=== PATIENT | female | born 1965 | race Caucasian/White ===

== ENCOUNTER 2019-09-22 08:16 | Inpatient (IN) | payer BC ==
[~2019-09-22] VITALS: Ht 177.8 cm; Wt 126.1 kg
[~2019-09-22 08:16] MED LIST: ACTOS30 MG PO; INVOKAMET1 PO; LIPITOR20 MG PO; OMEGA-31 SGL PO; PRINZIDE 12.5 M1 TAB PO; PRISTIQ 50 MG T50 MG PO; ZYRTEC 10MG10 MG PO; [UNRECOGNIZED DRUG - OTHER] PO
[2019-09-22] MEDS ORDERED: GLUCOPHAGE500 MG/TAB PO (08:33)
[2019-09-22] MEDS ORDERED: OZEMPIC0.25 MG/0. SQ (08:34)
[2019-09-22 09:03] LABS: COLLECTION METHOD CLEAN CATCH
[2019-09-22 09:10] LABS: BASO # 0.1 (0.0-0.2); BASO % 0.8 % (0.0-2.0); EOS # 0.1 (0.0-0.7); EOS % 0.8 % (0-4.0); GRAN % 67.7 % (42.2-75.2); HEMATOCRIT 38.5 % (37.0-47.0); HEMOGLOBIN 12.9 g/dl (12.5-16.0); LYMPH # 1.5 (1.2-3.4); LYMPH % 19.9 % (20.0-51.0); MEAN CELL VOLUME 87 fl (80.0-100.0); MEAN CORPUSCULAR HEMOGLOBIN 29 pg (27.0-31.0); MEAN CORPUSCULAR HGB CONC 34 g/dl (33.0-37.0); MEAN PLATELET VOLUME 10.9 fl (7.4-10.4); MONO # 0.8 (0.1-0.6); MONO % 10.4 % (1.7-9.3); PLATELET COUNT 229 K/mm3 (130-400); RED BLOOD COUNT 4.42 M/mm3 (4.10-5.30); REDCELL DISTRIBUTION WIDTH-CV 17.1 % (11.5-14.5)
[2019-09-22 09:18] LABS: MUCOUS Present /lpf; PH 6 (5-8); URINE APPEARANCE Clear; URINE BACTERIA Rare /hpf; URINE BILIRUBIN Negative (NEGATIVE); URINE BLOOD 1+ (NEGATIVE); URINE COLOR Amber; URINE GLUCOSE 1+ (NEGATIVE); URINE KETONE 1+ (NEGATIVE); URINE LEUKOCYTE ESTERASE Trace (NEGATIVE); URINE NITRATE Negative (NEGATIVE); URINE PROTEIN(semi-quant) 1+ (NEGATIVE); URINE RBC 20-50 /hpf; URINE UROBILINOGEN >=4.0 mg/dL (NEGATIVE)
[2019-09-22 09:29] LABS: ALANINE AMINOTRANSFERASE 50 U/L (9-52); ALBUMIN 3.1 gm/dL (3.5-5.0); ALKALINE PHOSPHATASE 543 U/L (50-136); ANION GAP 8 mmol/L (7-16); AST,SGOT 83 U/L (15-37); BILIRUBIN,TOTAL 2.4 mg/dL (0.0-1.0); BLOOD UREA NITROGEN 8 mg/dL (7-17); CALCIUM 8.1 mg/dL (8.4-10.2); CARBON DIOXIDE 26 mmol/L (22-30); CHLORIDE 102 mmol/L (98-107); GLUCOSE 227 mg/dL (74-106); LIPASE 88 U/L (23-300); POTASSIUM 3.6 mmol/L (3.4-5.0); SODIUM 136 mmol/L (137-145); TOTAL PROTEIN 6.5 gm/dL (6.4-8.2)
[2019-09-22 09:30] LABS: C-REACTIVE PROTEIN < 0.5 mg/dL (0.0-0.9)
[2019-09-22 09:43] LABS: TROPONIN-I < 0.012 ng/mL (0.000-0.035)
--- NOTE | 2019-09-22 11:15 | NUR ---
Received patient from ED. Alert. NPO. IV antibiotic infusing. here.
[2019-09-22 11:36] VITALS: BP 129/58; PULSE 88; TEMP 98
--- NOTE | 2019-09-22 12:45 | NUR ---
Medicated with IV Dilaudid for c/o increasing abdominal pain. IV fluids infusing. Denies nausea.
[2019-09-22 15:45] VITALS: BP 125/33; PULSE 91; TEMP 98.2
--- NOTE | 2019-09-22 18:00 | NUR ---
Pain improved with prn [place] and Dilaudid. Taking clear liquids. Independent in room.
--- NOTE | 2019-09-22 19:45 | NUR ---
Pt. sitting up in bed watching TV. Pt. is A&OX3, assessment complete. IV to rt. hand patent, IV fluids infusing per orders. Pt. denies needs at this time. Call light within reach.
[2019-09-22 20:40] VITALS: BP 138/50; PULSE 90; TEMP 98.6
[2019-09-22 23:56] VITALS: BP 117/50; PULSE 90; TEMP 98.5
[2019-09-23 04:07] VITALS: BP 120/48; PULSE 80; TEMP 98
[2019-09-23 06:47] LABS: BASO % 0.5 % (0.0-2.0); EOS # 0.1 (0.0-0.7); EOS % 1.3 % (0-4.0); GRAN # 5.5 (1.4-6.5); GRAN % 64.5 % (42.2-75.2); HEMOGLOBIN 11.3 g/dl (12.5-16.0); LYMPH # 1.9 (1.2-3.4); MEAN CELL VOLUME 87 fl (80.0-100.0); MEAN CORPUSCULAR HEMOGLOBIN 29 pg (27.0-31.0); MEAN CORPUSCULAR HGB CONC 34 g/dl (33.0-37.0); MEAN PLATELET VOLUME 11.4 fl (7.4-10.4); MONO % 11.5 % (1.7-9.3); PLATELET COUNT 208 K/mm3 (130-400); RED BLOOD COUNT 3.86 M/mm3 (4.10-5.30); REDCELL DISTRIBUTION WIDTH-CV 17.4 % (11.5-14.5)
[2019-09-23 06:48] LABS: HEMATOCRIT 33.6 % (37.0-47.0)
[2019-09-23 06:58] LABS: ALBUMIN 2.4 gm/dL (3.5-5.0); BILIRUBIN,TOTAL 2.5 mg/dL (0.0-1.0); CALCIUM 7.6 mg/dL (8.4-10.2); CREATININE, serum 0.35 (0.52-1.25); POTASSIUM 3.7 mmol/L (3.4-5.0); TOTAL PROTEIN 5.3 gm/dL (6.4-8.2)
[2019-09-23 07:36] VITALS: BP 128/53; PULSE 85; TEMP 98
--- NOTE | 2019-09-23 09:41 | NUR ---
Initial visit; Patient and thanked Clinic Assistant for looking in on Faith and making sure she has a support system. Clinic Assistant offered spiritual care.
--- NOTE | 2019-09-23 11:59 | NUR ---
KYLIE met with the patient and the patient's , Ryan ([phone]), to discuss discharge plan. The patient lives in [place] with her and their [id number] son. She reports independence with ADLs and does not have any DME. The patient's PCP is Dr. Serene Cagle and she receives her medications at [facility]. She reports no difficulties obtaining her meds. The patient does not have advanced directives and she was not interested in completing them at this time. The patient plans to return home with her family upon discharge. No additional needs at this time.
[2019-09-23 12:01] VITALS: BP 134/62; PULSE 81; TEMP 98.1
[2019-09-23 16:43] VITALS: BP 134/57; PULSE 82; TEMP 98.6
--- NOTE | 2019-09-23 18:08 | NUR ---
Patient resting in bed. Ercp completed early this afternoon. She tolerated well. Vss. Tolerated clears. No Nausea. She will be Npo at midnight for robotic julianna in AM. IV per orders. She showered this am & did well. Pain managed with po & iv medication per orders. Pain in her abdomen & radiates to her back. SHe has described as burning. Her supportive family has been at bedside.
--- NOTE | 2019-09-23 20:00 | NUR ---
Patient in bed, is alert and oriented x4. Has IVF infusing to right hand without redness or swelling. Denies needs at this time.
[2019-09-23 20:05] VITALS: BP 136/53; PULSE 83; TEMP 98.4
[2019-09-23 23:12] VITALS: BP 140/59; PULSE 84; TEMP 98.4
--- NOTE | 2019-09-23 23:22 | NUR ---
Patient reports abdominal pain 05/25, medicated with Dilaudid 0.5mg IVP at this time.
[2019-09-24] VITALS (10 sets, daily range): BP systolic 121–141; BP diastolic 52–64; PULSE 74–94; TEMP 97.4–9704
--- NOTE | 2019-09-24 00:07 | NUR ---
Patient reports pain 5/10, [place] 5/325mg given at this time.
--- NOTE | 2019-09-24 04:30 | NUR ---
Medicated with Dilaudid 0.5mg IVP at this time for pain to back 6/10.
--- NOTE | 2019-09-24 09:50 | NUR ---
Patient alert and oriented, answers questions appropriately. See assessment. Abdomen soft, non tender, non distended. Bowel sounds active x4 quads. Tender with palpation to RUQ/LUQ. No other c/o at this time.
--- NOTE | 2019-09-24 17:27 | NUR ---
Patient to surgery at 1600.
--- NOTE | 2019-09-24 18:12 | NUR ---
Patient returns from surgery. Assessment unchanged except for lap sites to abdomen x 3 with no redness or drainage noted. No c/o at this time.
--- NOTE | 2019-09-24 20:00 | NUR ---
PATIENT DROWSY POST LAP LORENA. HAS LAP SITES X4 GLUED AND DRY. IV TO RIGHT HAND WITH IVF INFUSING WITHOUT PROBLEM. DENIES PAIN AT THIS TIME.
--- NOTE | 2019-09-24 22:10 | NUR ---
IVF CAPPED. PATIENT TAKING ORAL FLUIDS WELL. HAS BEEN UP TO VOID X1. DENIES NEED FOR PAIN MEDS AT THIS TIME. DOES REPORT SOME VAGINAL BLEEDING WHEN UP TO BR, VPAD IN PLACE.
[2019-09-25 00:22] VITALS: BP 134/60; PULSE 101; TEMP 98.6
--- NOTE | 2019-09-25 02:45 | NUR ---
PATIENT DROWSY, DENIES PAIN AT THIS TIME.
[2019-09-25 03:44] VITALS: BP 123/59; PULSE 100; TEMP 99.2
[2019-09-25 07:39] VITALS: BP 133/58; PULSE 89; TEMP 98.1
--- NOTE | 2019-09-25 09:00 | NUR ---
Patient alert and oriented, answers questions appropriately. See assessment. Abdomen soft, non tender, non distended. Bowel sounds active x4 quads. +Flatus. No c/o pain or discomfort.
--- NOTE | 2019-09-25 10:44 | NUR ---
Discharge instructions reviewed with patient and spouse, verbalized understanding. Discharged via wheelchair to auto/home with spouse at 1040.
== END 2019-09-25 10:40 | disposition home or self-care (01) | DRG 418 ==
LOC: COL.ER 08:16 → SURG 10:35
PROVIDERS: Physician Assistant; ADMIT Surgery
PROC: 8E0W4CZ Robotic Assisted Procedure of Trunk Region, Percutaneous Endoscopic Approach (ICD-10-PCS; 2019-09-24)
PROC: 0FT44ZZ Resection of Gallbladder, Percutaneous Endoscopic Approach (ICD-10-PCS; principal; 2019-09-24 15:45)
DX: K80.42 Calculus of bile duct with acute cholecystitis without obstruction (principal); K82.1 Hydrops of gallbladder; E11.9 Type 2 diabetes mellitus without complications
CPT/HCPCS: C1769; J0690; J1100; J1170; J1885; J1956; J2250; J2405; J2550; J2704; J2710; J3010; J7030; J7120; Q9967

== ENCOUNTER → 2021-07-08 | Outpatient (CLI) | payer BC ==
[~2021-07-08] MED LIST changes: +GLUCOPHAGE500 MG/TAB PO; +OZEMPIC0.25 MG/0. SQ
== END ==
LOC: MC.RAD 07:45
DX: Z12.31 Encounter for screening mammogram for malignant neoplasm of breast (principal)

== ENCOUNTER → 2021-07-20 | Outpatient (CLI) | payer BC | LOC: COL.RAD 11:46 | DX: N93.9 Abnormal uterine and vaginal bleeding, unspecified (principal); R16.0 Hepatomegaly, not elsewhere classified; Z90.49 Acquired absence of other specified parts of digestive tract ==